=== PATIENT | female | born 1955 | race Two or more races ===

== ENCOUNTER 2020-05-31 15:45 | Emergency (ER) | payer MEDICARE ==
[~2020-05-31] VITALS: Ht 154.9 cm; Wt 65.8 kg
[2020-05-31] MEDS ORDERED: cloNIDine HCL 0.1 MG TAB PO ONE (16:00)
[2020-05-31] MEDS ORDERED: SODIUM CHLORIDE 0.9% 1,000 ML IV ONE (16:30)
[2020-05-31 16:41] LABS: Basophils # (auto) 0.2 10 ^3/uL (0-0.2); Eosinophils # (auto) 0.2 10 ^3/uL (0-0.8); Eosinophils % (auto) 1.6 % (0.0-7.0); Hematocrit 39.1 % (36.0-46.0); Hemoglobin 12.7 g/dL (12.2-16.2); Lymphocytes # (auto) 1.7 10 ^3/uL (0.4-5.4); Lymphocytes % (auto) 11.7 % (10.0-50.0); Mean Corpuscular Hemoglobin 27.1 pg (28.0-32.0); Mean Corpuscular Hgb Conc. 32.5 g/dL (32.0-36.0); Mean Corpuscular Volume 83.3 fL (80.0-100.0); Monocytes # (auto) 1.1 10 ^3/uL (0-1.3); Monocytes % (auto) 7.5 % (0.0-12.0); Neutrophils # (auto) 11.6 10 ^3/uL (1.6-8.6); Neutrophils % (auto) 78.2 % (37.0-80.0); Platelet Count (auto) 221 10^3/uL (140-450); Red Blood Cells 4.69 10^6/uL (4.0-5.20); Red Cell Distribution Width 15.8 % (11.8-14.3); White Blood Cell 14.8 10^3/uL (4.4-10.8)
[2020-05-31 16:57] LABS: INR 0.97 (0.9-1.15); Partial Thromboplastin Time 21.7 sec (23.0-31.2)
[2020-05-31 16:58] LABS: Albumin 3.5 g/dL (3.4-5.0); Calcium 8.8 mg/dL (8.5-10.1); Magnesium 2.1 mg/dL (1.6-2.6); Potassium 3.5 mmol/L (3.5-5.1)
[2020-05-31 17:04] LABS: Bilirubin, Total 0.3 mg/dL (0.2-1.0); Total Protein 7.6 g/dL (6.4-8.2)
[2020-05-31] MEDS ORDERED: amLODIPine BESYLATE 5 MG TAB PO ONE (18:00)
[2020-05-31 18:05] VITALS: BP 165/95
== END 2020-05-31 18:55 | disposition home or self-care (01) ==
LOC: ER 15:45
DX: S83.92XA Sprain of unspecified site of left knee, initial encounter (principal); D72.829 Elevated white blood cell count, unspecified; I10 Essential (primary) hypertension; E11.9 Type 2 diabetes mellitus without complications; X58.XXXA Exposure to other specified factors, initial encounter; Y93.89 Activity, other specified; Y92.89 Other specified places as the place of occurrence of the external cause; Y99.8 Other external cause status
CPT/HCPCS: 36415; 71045; 73562; 80053; 83735; 83880; 84484; 85025; 85610; 85730; 96360; 99285; J7030